=== PATIENT | male | born 1990 | race Caucasian/White ===

== ENCOUNTER 2019-06-07 21:11 | Emergency (ER) | payer SELFPAY ==
[2019-06-07] MEDS ORDERED: NA CHLORIDE 0.9% 1,000 ML ONE (22:09)
[2019-06-07 22:15] LABS: Absolute Lymphocytes (CBC) 1.4 K/uL (0.7-4.9); Basophils % 0.3 % (0-1.3); Hematocrit 43.7 % (39.6-49.0); Lymphocytes % 16.3 % (15.3-44.8); MPV 8.9 fL (7.6-11.3); RBC Red Blood Cell Count 4.86 M/uL (4.33-5.43)
[2019-06-07 22:16] LABS: Protime INR 1.12
[2019-06-07 22:20] LABS: Barbiturates NEGATIVE (NEGATIVE); Benzodiazepines NEGATIVE (NEGATIVE); Cocaine NEGATIVE (NEGATIVE); METHAMPHETAM NEGATIVE (NEGATIVE); Methadone NEGATIVE (NEGATIVE); Opiates NEGATIVE (NEGATIVE); Phencyclidine NEGATIVE (NEGATIVE); THC Cannibis NEGATIVE (NEGATIVE)
[2019-06-07 22:41] LABS: ALT/SGPT 136 U/L (12-78); AST/SGOT 47 U/L (15-37); Albumin 4.3 g/dL (3.4-5.0); Alkaline Phosphatase 58 U/L (45-117); BUN Blood Urea Nitrogen 10 mg/dL (7-18); Bicarbonate 26 mmol/L (21-32); Bilirubin Direct 0.3 mg/dL (0-0.2); Bilirubin Total 0.9 mg/dL (0.2-1.0); Glucose Level 116 mg/dL (74-106); Protein, Total 8.1 g/dL (6.4-8.2); Sodium Level 139 mmol/L (136-145)
[2019-06-07 22:42] LABS: Magnesium 1.8 mg/dL (1.8-2.4); NT PRO-BNP 25 pg/mL (<125); Troponin (Emerg Dept Use Only) < 0.02 ng/mL (0.0-0.045)
[2019-06-07 22:49] LABS: Urine Bacteria <20 /HPF (NONE SEEN); Urine Culture Reflex Order NOT NEEDED; Urine RBC NONE SEEN /HPF (NONE SEEN)
[2019-06-07 22:50] LABS: Urine Glucose NEGATIVE (NEG)
[2019-06-07 22:51] LABS: Urine Blood TRACE (NEG); Urine Protein NEGATIVE (NEG); Urine pH 5.5 (5.0-7.0)
--- NOTE | 2019-06-07 23:52 | ER ---
Nurse's Notes [facility] Name: Davon Matson Age: 28 yrs Sex: Male : 1990 Arrival Date: 06/07/2019 Time: 21:18 Bed 15 Private MD: Diagnosis: Chest pain, unspecified Presentation: 06/07 21:19 Presenting complaint: Patient states: I feel like something is just wrong, I cant la1 explain it, I am very nervous. I feel lightheaded. Transition of care: patient was not received from another setting of care. Onset of symptoms was June 07, 2019. Risk Assessment: Do you want to hurt yourself or someone else? Patient reports no desire to harm self or others. Initial Sepsis Screen: Does the patient meet any 2 criteria? No. Patient's initial sepsis screen is negative. Does the patient have a suspected source of infection? No. Patient's initial sepsis screen is negative. Care prior to arrival: None. 21:19 Method Of Arrival: Ambulatory la1 21:19 Acuity: REMA 3 la1 Historical: - Allergies: 21:19 No Known Allergies; la1 - Home Meds: 21:19 None [Active]; la1 - PMHx: 21:19 None; la1 - PSHx: 21:19 Ear Tubes; Tonsillectomy; la1 - Immunization history:: Adult Immunizations up to date. - Social history:: Smoking status: Patient/guardian denies using tobacco, Patient uses alcohol, patient/guardian reports recent binge of alcohol consumption. says drinks heavy 2-3 times per week. - Ebola Screening: : No symptoms or risks identified at this time. Screenin:45 Abuse screen: Denies threats or abuse. Nutritional screening: No deficits noted. tr5 Tuberculosis screening: No symptoms or risk factors identified. Fall Risk None identified. Assessment: 21:45 General: Appears uncomfortable, Behavior is calm, cooperative, appropriate for age. tr5 Pain: Denies pain. Neuro: Level of Consciousness is awake, alert, obeys commands, Oriented to person, place, time, Kettle Loader are equal bilaterally Moves all extremities. Cardiovascular: Heart tones present Capillary refill < 3 seconds. Respiratory: Airway is patent Respiratory effort is even, unlabored, Respiratory pattern is regular, symmetrical. GI: No signs and/or symptoms were reported involving the gastrointestinal system. : No signs and/or symptoms were reported regarding the genitourinary system. EENT: No signs and/or symptoms were reported regarding the EENT system. Derm: No signs and/or symptoms reported regarding the dermatologic system. Musculoskeletal: No signs and/or symptoms reported regarding the musculoskeletal system. 22:47 Reassessment: Patient appears in no apparent distress at this time. Patient and/or tr5 family updated on plan of care and expected duration. Pain level reassessed. Patient is alert, oriented x 3, equal unlabored respirations, skin warm/dry/pink. 06/08 00:04 Reassessment: Patient appears in no apparent distress at this time. No changes from previously documented assessment. Patient and/or family updated on plan of care and expected duration. Pain level reassessed. Patient is alert, oriented x 3, equal unlabored respirations, skin warm/dry/pink. Patient denies pain at this time. Vital Signs: 06/07 21:19 BP 162 / 91; Pulse 74; Resp 16; Temp 98.7; Pulse Ox 100% on R/A; Weight 142.88 kg; la1 Height 6 ft. 8 in. (203.20 cm); 21:45 BP 155 / 77; Pulse 79; Resp 17; Pulse Ox 99% on R/A; tr5 06/08 00:05 BP 131 / 68; Pulse 72; Resp 18; Pulse Ox 99% on R/A; wh 06/07 21:19 Body Mass Index 34.60 (142.88 kg, 203.20 cm) la1 ED Course: 06/07 21:18 Patient arrived in ED. la1 21:19 Triage completed. la1 21:19 Arm band placed on right wrist. la1 21:21 Rip Chaidez, RN is Primary Nurse. tr5 21:25 Chano Hollingsworth MD is Attending Physician. gs 21:45 Placed in gown. Bed in low position. Call light in reach. tr5 21:45 Initial lab(s) drawn, by me, sent to lab. EKG done, by ED staff. Inserted saline lock: tr5 20 gauge in right antecubital area, using aseptic technique. 22:30 X-ray completed. Portable x-ray completed in exam room. Patient tolerated procedure mh1 well. 22:31 XRAY Chest (1 view) In Process Unspecified. EDMS 06/08 00:05 No provider procedures requiring assistance completed. IV discontinued, intact, bleeding controlled, No redness/swelling at site. Administered Medications: 06/07 22:24 Drug: NS 0.9% 1000 ml Route: IV; Rate: 1 bolus; Site: right forearm; tr5 06/08 00:06 Follow up: Response: No adverse reaction; IV Status: Completed infusion Outcome: 06/07 23:52 Discharge ordered by . ottoniel 06/08 00:05 Discharged to home ambulatory, with family. Condition: good Discharge instructions given to patient, family, Instructed on discharge instructions, follow up and referral plans. POC Nonspecific chest pain and HTN Demonstrated understanding of instructions, follow-up care, POC 00:06 Patient left the ED. Signatures: Dispatcher [employer] EDOH Kim Up [facility] Maik Cox, RN RN la1 Isabela Fall Chano Hollingsworth MD MD gs Rodriguez, Tommie, RN RN tr5
--- NOTE | 2019-06-07 23:52 | EDPHYS ---
Physician Documentation [facility] Name: Davon Matson Age: 28 yrs Sex: Male : 1990 Arrival Date: 06/07/2019 Time: 21:18 Bed 15 Private MD: ED Physician Chano Hollingsworth HPI: 06/07 23:44 This 28 yrs old Male presents to ER via Ambulatory with complaints of Doesn't gs Feel Right. 23:44 say this afternoon just doesn't feel right, cant say exactly what is wrong fells a gs little light headed and intermittent chest pain, says has had before in past. . Severity of symptoms: At their worst the symptoms were moderate in the emergency department the symptoms are unchanged. Historical: - Allergies: 21:19 No Known Allergies; la1 - Home Meds: 21:19 None [Active]; la1 - PMHx: 21:19 None; la1 - PSHx: 21:19 Ear Tubes; Tonsillectomy; la1 - Immunization history:: Adult Immunizations up to date. - Social history:: Smoking status: Patient/guardian denies using tobacco, Patient uses alcohol, patient/guardian reports recent binge of alcohol consumption. says drinks heavy 2-3 times per week. - Ebola Screening: : No symptoms or risks identified at this time. ROS: 23:44 Constitutional: Negative for chills, fever. gs 23:44 Eyes: Negative for pain, visual disturbance. 23:44 ENT: Negative for ear pain, Teeth pain sinus congestion. 23:44 Neck: Negative for pain with movement, tenderness. 23:44 Cardiovascular: Negative for orthopnea, palpitations. 23:44 Respiratory: Negative for cough, pleurisy, shortness of breath. 23:44 Abdomen/GI: Negative for abdominal pain, nausea and vomiting, diarrhea. 23:44 Back: Negative for injury or acute deformity, pain with movement. 23:44 Skin: Negative for burn, rash. 23:44 Neuro: Negative for dizziness, headache. 23:44 Allergy/Immunology: Negative for hives, joint pain. 23:44 Endocrine: Negative for polydipsia, weight gain, weight loss. 23:44 Hematologic/Lymphatic: Negative for petechiae, ecchymosis. 23:44 All other systems are negative. Exam: 23:44 Head/Face: Normocephalic, atraumatic. Eyes: Pupils equal round and reactive to light, gs extra-ocular motions intact. Lids and lashes normal. Conjunctiva and sclera are non-icteric and not injected. Cornea within normal limits. Periorbital areas with no swelling, redness, or edema. ENT: Nares patent. No nasal discharge, no septal abnormalities noted. Tympanic membranes are normal and external auditory canals are clear. Oropharynx with no redness, swelling, or masses, exudates, or evidence of obstruction, uvula midline. Mucous membranes moist. Neck: Trachea midline, no thyromegaly or masses palpated, and no cervical lymphadenopathy. Supple, full range of motion without nuchal rigidity, or vertebral point tenderness. No Meningismus. Chest/axilla: Normal chest wall appearance and motion. Nontender with no deformity. No lesions are appreciated. Cardiovascular: Regular rate and rhythm with a normal S1 and S2. No gallops, murmurs, or rubs. Normal PMI, no JVD. No pulse deficits. Respiratory: Lungs have equal breath sounds bilaterally, clear to auscultation and percussion. No rales, rhonchi or wheezes noted. No increased work of breathing, no retractions or nasal flaring. Abdomen/GI: Soft, non-tender, with normal bowel sounds. No distension or tympany. No guarding or rebound. No evidence of tenderness throughout. Back: No spinal tenderness. No costovertebral tenderness. Full range of motion. Skin: Warm, dry with normal turgor. Normal color with no rashes, no lesions, and no evidence of cellulitis. MS/ Extremity: Pulses equal, no cyanosis. Neurovascular intact. Full, normal range of motion. Neuro: Awake and alert, GCS 15, oriented to person, place, time, and situation. Cranial nerves II-XII grossly intact. Motor strength 5/5 in all extremities. Sensory grossly intact. Cerebellar exam normal. Normal gait. 23:44 Constitutional: The patient appears alert, awake. Vital Signs: 21:19 BP 162 / 91; Pulse 74; Resp 16; Temp 98.7; Pulse Ox 100% on R/A; Weight 142.88 kg; la1 Height 6 ft. 8 in. (203.20 cm); 21:45 BP 155 / 77; Pulse 79; Resp 17; Pulse Ox 99% on R/A; tr5 06/08 00:05 BP 131 / 68; Pulse 72; Resp 18; Pulse Ox 99% on R/A; wh 06/07 21:19 Body Mass Index 34.60 (142.88 kg, 203.20 cm) la1 MDM: 06/07 21:43 Patient medically screened. gs 23:44 Differential Diagnosis cad,hyperthyroid,etoh withdrawl. Data reviewed: vital signs, gs nurses notes. Counseling: I had a detailed discussion with the patient and/or guardian regarding: the historical points, exam findings, and any diagnostic results supporting the discharge/admit diagnosis, the presence of at least one elevated blood pressure reading (>120/80) during this emergency department visit, lab results, radiology results, the need for outpatient follow up. Response to treatment: the patient's symptoms have markedly improved after treatment, and as a result, I will discharge patient. 23:52 Special discussion: I have referred the patient to see his PCP for further evaluation gs of high blood pressure. 06/07 21:44 Order name: Basic Metabolic Panel 06/07 21:44 Order name: CBC with Diff 06/07 21:44 Order name: LFT's; Complete Time: 23:28 gs 06/07 21:44 Order name: Magnesium; Complete Time: 23:28 06/07 21:44 Order name: NT PRO-BNP; Complete Time: 23:28 06/07 21:44 Order name: PT-INR; Complete Time: 23:28 06/07 21:44 Order name: Troponin (emerg Dept Use Only); Complete Time: 23:28 06/07 21:44 Order name: Urine Drug Screen; Complete Time: 23:28 06/07 21:44 Order name: Urine Microscopic Only; Complete Time: 23:28 06/07 21:44 Order name: TSH; Complete Time: 23:28 06/07 21:44 Order name: ETOH Level; Complete Time: 23:28 gs 06/07 21:45 Order name: Basic Metabolic Panel; Complete Time: 23:28 EDMS 06/07 21:45 Order name: CBC with Automated Diff; Complete Time: 23:28 EDMS 06/07 22:23 Order name: Urine Dipstick--Ancillary (enter results); Complete Time: 23:28 ar5 06/07 21:44 Order name: XRAY Chest (1 view) 06/07 21:44 Order name: EKG; Complete Time: 21:45 06/07 21:44 Order name: Cardiac monitoring; Complete Time: 22:24 06/07 21:44 Order name: EKG - Nurse/Tech; Complete Time: 22:24 06/07 21:44 Order name: IV Saline Lock; Complete Time: 22:24 06/07 21:44 Order name: Labs collected and sent; Complete Time: 22:24 06/07 21:44 Order name: O2 Per Protocol; Complete Time: 22:23 06/07 21:44 Order name: O2 Sat Monitoring; Complete Time: 22:23 06/07 21:44 Order name: Urine Dipstick-Ancillary (obtain specimen); Complete Time: 22:04 Administered Medications: 22:24 Drug: NS 0.9% 1000 ml Route: IV; Rate: 1 bolus; Site: right forearm; tr5 06/08 00:06 Follow up: Response: No adverse reaction; IV Status: Completed infusion Disposition: 06/07/19 23:52 Discharged to Home. Impression: Chest pain, unspecified. - Condition is Stable. - Discharge Instructions: Nonspecific Chest Pain, Managing Your Hypertension. - Medication Reconciliation Form, Thank You Letter, Antibiotic Education, Prescription Opioid Use form. - Follow up: Private Physician; When: 2 - 3 days; Reason: Re-evaluation by your physician. Signatures: Dispatcher [employer] EDMaik Malhotra RN RN me1 Isabela Fall Chano Hollingsworth MD MD Rip Chaidez RN RN tr5 Corrections: (The following items were deleted from the chart) 00:06 06/07 23:52 06/07/2019 23:52 Discharged to Home. Impression: Chest pain, unspecified. Condition is Stable. Forms are Medication Reconciliation Form, Thank You Letter, Antibiotic Education, Prescription Opioid Use. Follow up: Private Physician; When: 2 - 3 days; Reason: Re-evaluation by your physician.
[2019-06-08 00:38] VITALS: TEMP 98.7
[2019-06-08 00:40] VITALS: O2SAT 99
[2019-06-08 00:41] VITALS: BP 131/68
--- NOTE | 2019-06-08 08:02 | RAD REPORT ---
EXAM DESCRIPTION: RAD - Chest Single View - 06/07/2019 10:30 pm CLINICAL HISTORY: Chest pain COMPARISON: None. TECHNIQUE: AP portable chest image was obtained 2226 hours . FINDINGS: Lungs are clear. Heart and vasculature are normal. No measurable pleural effusion and no p neumothorax. No acute bony abnormality seen. No acute aortic findings suspected. IMPRESSION: No acute cardiopulmonary process.
--- NOTE | 2019-06-08 13:04 | EKG ---
Test Date: 2019-06-07 Test Time: 21:53:01 [employer] Supervisor: TR MEASUREMENT RESULTS: Intervals: Rate: 84 MN: 150 QRSD: 92 QT: 374 QTc: 441 [place]: P: 26 MN: 150 QRS: 4 T: 20 INTERPRETIVE STATEMENTS: Poor data quality, interpretation may be adversely affected Normal sinus rhythm Normal ECG No previous ECG available for comparison Electronically Signed On 06-08-19 13:03:26 CDT by Cassius Jimenez
== END 2019-06-08 00:06 | disposition home or self-care (01) ==
LOC: ER 21:11
DX: R07.9 Chest pain, unspecified (principal)
CPT/HCPCS: 36415; 71045; 80048; 80076; 80307; 80320; 81003; 81015; 83735; 83880; 84443; 84484; 85025; 85610; 93005; 96360; 96361; 99284; J7030